=== PATIENT | female | born 2000 | race Caucasian/White ===

== ENCOUNTER 2020-05-07 16:52 | Emergency (ER) | payer OTHER ==
[~2020-05-07] VITALS: Ht 167.6 cm; Wt 54.5 kg
[2020-05-07 16:52] VITALS: BP 128/62
[2020-05-07] MEDS ORDERED: SPIR50TA4 PO (17:04)
[2020-05-07] MEDS ORDERED: NORG1TAB33 PO (17:04)
== END 2020-05-07 18:05 | disposition home or self-care (01) ==
LOC: M ED 16:52
DX: R11.10 Vomiting, unspecified (principal); Z79.899 Other long term (current) drug therapy; Z79.3 Long term (current) use of hormonal contraceptives

== ENCOUNTER → 2020-05-29 | Outpatient (REF) | payer OTHER ==
[~2020-05-29] MED LIST: NORG1TAB33 PO; SPIR50TA4 PO
== END ==
LOC: M LAB REF 16:28
PROVIDERS: ATTEND Family Medicine
DX: R10.9 Unspecified abdominal pain (principal)